=== PATIENT | male | born 1995 | race Hispanic/Latino ===

== ENCOUNTER 2021-05-25 23:04 | Emergency (ER) | payer BC ==
[~2021-05-25] VITALS: Ht 180.3 cm; Wt 86.2 kg
== END 2021-05-25 23:50 | disposition home or self-care (01) ==
LOC: ED 23:04
DX: S01.112A Laceration without foreign body of left eyelid and periocular area, initial encounter (principal); W50.0XXA Accidental hit or strike by another person, initial encounter
CPT/HCPCS: 12011; 99282-25